=== PATIENT | female | born 1975 | race Hispanic/Latino ===

== ENCOUNTER 2024-06-18 17:57 | Emergency (ER) | payer OTHER, SELFPAY ==
[2024-06-18 18:10] VITALS: BP 103/77; PULSE 73; RESP 16; TEMP 36.7; O2SAT 99
--- NOTE | 2024-06-18 18:14 | ED.FEMALEGU ---
HPI - Female Genitourinary General Chief complaint: Urogenital-Female Stated complaint: EARACHE/UTI SYMPTOMS Time Seen by Provider: 06/18/24 18:15 Source: patient Mode of arrival: ambulatory Limitations: no limitations History of Present Illness HPI Narrative: Josey is a 48-year-old female patient presenting to the clinic today with complaints of ear pain and UTI symptoms. She reports UTI symptoms started this morning with some burning with urination and feeling as though she was not fully completely emptying her bladder. Has right ear/jaw pain that started Monday. Pain is worse when opening and closing her mouth. She also reports pain is worse when she lays on her right side. Related Data Home Medications ?Medication ?Instructions ?Recorded ?Confirmed ?Last Taken ?Type alprazolam 0.25 mg tablet 0.25 mg PO PRN anxiety 06/18/24 06/18/24 Unknown History estradiol 1 mg tablet 1 mg PO DAILY 06/18/24 06/18/24 Unknown History paroxetine HCl 20 mg tablet 20 mg PO DAILY 06/18/24 06/18/24 Unknown History progesterone micronized 100 mg 200 mg PO QPM 06/18/24 06/18/24 Unknown History capsule Allergies Allergy/AdvReac Type Severity Reaction Status Date / Time No Known Allergies Allergy Mild Verified 06/18/24 18:13 Review of Systems Review of Systems: Pertinent positives per HPI. Patient denies any fever, chills, rash, headache, visual changes, dizziness, cough, shortness of breath, chest pain, palpitations, nausea, vomiting, diarrhea, constipation, abdominal pain PMFSH Social History Social History Tobacco type: e-cigarettes/vaping Additional smoking assessment comments: 2 YRS - RARE USE CURRENTLY Alcohol intake: current Alcohol use details: RARE USE Substance use: never Living arrangements: with family Comments At the time of my signature, I reviewed and agree with the nursing past medical, surgical, social, and family history. There is no relevant family history pertinent to the patient complaint. Exam Narrative: General: Well-developed, well nourished, in no apparent distress Head: Normocephalic, atraumatic Eyes: Pupils equally round and reactive to light bilaterally, EOM intact, sclera and conjunctive clear, no discharge, lids normal Ears: TMs intact and clear, ear canals clear, no drainage, grossly hearing normal. Nose: Nares patent, no discharge, no inflammation, no sinus tenderness. Mouth: Oral pharynx without lesions or masses, good dentition, MMM. Right TMJ joint tenderness-no crepitus palpable with opening and closing Neck: Supple, trachea midline, no enlargement of anterior or posterior cervical nodes, no thyroid masses or goiter palpable. Cardio: Regular rate and rhythm, s1 and s2 normal, no murmur appreciated. Resp: Clear to auscultation bilaterally, no rhonchi, rales, wheezing or rubs Abdomen: Soft, pliable, bowel sounds present in all quadrants, mild tender to palpation over the suprapubic bladder, no organomegly, right CVAT tenderness. Course Course Emergency Course: Portions of this record may have been created with voice recognition software. Level of Care: Express Care Visit Vital Signs Vital signs: Vital Signs Temperature 36.7 C 06/18/24 18:10 Pulse Rate 73 06/18/24 18:10 Respiratory Rate 16 06/18/24 18:10 Blood Pressure 103/77 06/18/24 18:10 Pulse Oximetry 99 06/18/24 18:10 Temperature 36.7 C 06/18/24 18:10 Pulse Rate 73 06/18/24 18:10 Respiratory Rate 16 06/18/24 18:10 Blood Pressure 103/77 06/18/24 18:10 Pulse Oximetry 99 06/18/24 18:10 Vital signs reviewed MDM - Female Genitourinary MDM Narrative Medical decision making narrative: At the time of visit patient is resting comfortably on the exam table. Patient appears to be nontoxic. Labs: Urinalysis is negative for any sign infection or blood. We will send urine for culture Plan: I suspect patient has TMJ arthralgia as well as dysuria. Supportive measures were discussed with the patient and they voiced understanding discharge instructions and agrees to treatment plan. Return precautions reviewed Differential Diagnosis Differential diagnosis: Likely urinary tract infection, cystitis and other (TMJ, right otitis media, dental infection) Discharge Plan Discharge Clinical Impression: TMJ arthralgia, Dysuria Patient Disposition: Home, Self-Care Condition: Stable Instructions: Antibiotic Form, Temporomandibular Disorder (ED), Dysuria (ED) Additional Instructions: Urinalysis is negative for any sign of infection or blood. We will send urine for culture May apply heat or cool compress to the right jaw to help alleviate pain Take ibuprofen 600 mg 3 times daily x7 days May take Tylenol additionally as needed for pain Increase fluids and stay well hydrated Wipe front to back. May use wet wipes. Avoid tub baths If sexually active- pee before and after intercourse. Wear cotton panties Avoid tight clothing up against the genitals Follow up with your PCP in 1 week if symptoms persist. Patient Language: Frisian Prescriptions: No Action hydroxyzine pamoate 25 mg capsule 25 mg PO PRN PRN (Reason: Anxiety) Collagen 1500 Plus C 500 mg-800 mcg- 50 mg Capsule 1 cap PO DAILY Follow-up/Referrals: Jim,Moriah [Other] Time of Disposition: 18:21 Quality NIHSS Nursing Documentation ED NIHSS nursing documentation: reviewed/agree
[2024-06-18 18:20] LABS: EDUAAPPEAR Clear; EDUABILI Negative (Negative); EDUABLOOD Negative (Negative); EDUACOLOR1 Yellow; EDUAGLUCOSE Negative (Negative); EDUAKETONE Negative (Negative); EDUALEUKO Negative (Negative); EDUANITRATE Negative (Negative); EDUAPROTEIN Negative (Negative); EDUAUROBILI 0.2
== END 2024-06-18 18:22 | disposition home or self-care (01) ==
PROVIDERS: Emergency Provider Nurse Practitioner Family
DX: M26.621 Arthralgia of right temporomandibular joint (principal); R30.0 Dysuria; F17.290 Nicotine dependence, other tobacco product, uncomplicated; Z79.899 Other long term (current) drug therapy
CPT/HCPCS: 81003; 87086; 99203; G0463